=== PATIENT | male | born 1965 | race Caucasian/White ===

== ENCOUNTER 2019-11-07 10:31 | Emergency (ER) | payer MEDICAID ==
[~2019-11-07] VITALS: Ht 172.7 cm; Wt 82.6 kg
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
[2019-11-07 11:38] VITALS: BP 108/77
--- NOTE | 2019-11-07 11:38 | NUR ---
Patient discharged to home in stable condition. Written and verbal after care instructions given. Patient verbalizes understanding of instruction.
== END 2019-11-07 11:39 | disposition home or self-care (01) ==
LOC: ER 10:31
DX: S20.212A Contusion of left front wall of thorax, initial encounter (principal); F41.9 Anxiety disorder, unspecified; E03.9 Hypothyroidism, unspecified; Z98.890 Other specified postprocedural states; V19.88XA Pedal cyclist (driver) (passenger) injured in other specified transport accidents, initial encounter; Y93.89 Activity, other specified; Y92.89 Other specified places as the place of occurrence of the external cause; Y99.8 Other external cause status
CPT/HCPCS: 71250-TC

== ENCOUNTER 2019-12-22 17:38 | Emergency (ER) | payer MEDICAID ==
[~2019-12-22] VITALS: Ht 172.7 cm; Wt 81.2 kg
[2019-12-22] MEDS ORDERED: DULO30CA52 PO (18:03)
[2019-12-22] MEDS ORDERED: TRAZ-252 PO (18:03)
[2019-12-22] MEDS ORDERED: PANT40TA49 PO (18:03)
[2019-12-22] MEDS ORDERED: ALPR0.255 PO (18:03)
[2019-12-22] MEDS ORDERED: LEVO112T2 PO (18:03)
--- NOTE | 2019-12-22 18:12 | NUR ---
pt ambulatory to er bed 15 arrive w/ multiple complaints stating he is having BLE swelling, L rib area pain x "way too long." pt admits to smoking a lot of weed. denies any recent trauma. stable vitals. awaiting md jones.
--- NOTE | 2019-12-22 18:43 | NUR ---
sarayp pa at bedside for eval.
--- NOTE | 2019-12-22 19:10 | NUR ---
DOPPLER BEING PERFORMED BY BEDSIDE
[2019-12-22 19:40] LABS: BASOPHILS # (AUTO) 0.1 /CMM (0.0-0.2); BASOPHILS % (AUTO) 1.4 % (0.0-2.0); EOSINOPHILS % (AUTO) 5.6 % (0.0-6.0); HEMATOCRIT 44 % (39-51); HEMOGLOBIN 14.1 g/dL (13.5-17.5); LYMPHOCYTES # (AUTO) 1.7 /CMM (0.8-4.8); LYMPHOCYTES % (AUTO) 23.1 % (20.0-44.0); MEAN CORPUSCULAR HGB CONC 33 g/dl (31.0-36.0); MEAN CORPUSCULAR VOLUME 93 fL (80-96); MONOCYTES # (AUTO) 0.8 /CMM (0.1-1.30); MONOCYTES % (AUTO) 10.7 % (2.0-12.0); NEUTROPHILS # (AUTO) 4.3 /CMM (1.8-8.9); NEUTROPHILS % (AUTO) 59.2 % (43.0-81.0); PLATELET COUNT (AUTO) 218 /CMM (150-450); RED BLOOD CELL COUNT(AUTO) 4.68 MIL/uL (4.5-6.0); WHITE BLOOD COUNT (AUTO) 7.2 K/uL (4.3-11.0)
--- NOTE | 2019-12-22 19:40 | NUR ---
XRAY AT BEDSIDE.
[2019-12-22 19:48] LABS: CALCIUM, SERUM 8.6 mg/dL (8.5-10.1); CARBON DIOXIDE 33 mmol/L (21-32); CHLORIDE 102 mmol/L (98-107); CREATININE 0.8 mg/dL (0.6-1.3); GLUCOSE 81 mg/dL (74-106); POTASSIUM 3.7 mmol/L (3.5-5.1); SODIUM SERUM 138 mmol/L (136-145); UREA NITROGEN, BLOOD 13 mg/dL (7-18)
[2019-12-22 20:04] LABS: B-TYPE NATRIURETIC PEPTIDE 86 PG/ML (0-125)
--- NOTE | 2019-12-22 21:40 | NUR ---
Patient discharged to home in stable condition. Written and verbal after care instructions given. Patient verbalizes understanding of instruction.
--- NOTE | 2019-12-22 21:57 | NUR ---
IV removed. Catheter intact and site benign. Pressure and 4x4 applied to site. No bleeding noted.
[2019-12-23 04:47] VITALS: BP 132/77
== END 2019-12-22 21:50 | disposition home or self-care (01) ==
LOC: ER 17:44
DX: R60.0 Localized edema (principal); L03.116 Cellulitis of left lower limb; L03.115 Cellulitis of right lower limb; F41.9 Anxiety disorder, unspecified; E03.9 Hypothyroidism, unspecified; F12.90 Cannabis use, unspecified, uncomplicated; Z98.890 Other specified postprocedural states; Z79.899 Other long term (current) drug therapy
CPT/HCPCS: 36415; 71045-TC; 73564-TC; 73630-TC; 80048-TC; 83880; 84484-TC; 85025-TC; 93970-TC

== ENCOUNTER 2020-08-02 22:59 | Emergency (ER) | payer MEDICAID ==
[~2020-08-02] VITALS: Ht 175.3 cm; Wt 79.4 kg
[~2020-08-02 22:59] MED LIST: ALPR0.255 PO; DULO30CA52 PO; LEVO112T2 PO; PANT40TA49 PO; TRAZ-252 PO
[2020-08-02 23:00] VITALS: BP 138/78
[2020-08-02] MEDS ORDERED: TDAP [DIPH/PERTUSSIS/TET] 0.5 ML VIAL IM ONE (23:28)
[2020-08-02] MEDS: TDAP [DIPH/PERTUSSIS/TET] 0.5 ML VIAL IM ONE (23:29)
[2020-08-02] MEDS ORDERED: LIDOCAINE HCL/MPF 1% 30 ML VIAL IJ ONE (23:37)
== END 2020-08-02 23:54 | disposition home or self-care (01) ==
LOC: ER 23:02
DX: S61.412A Laceration without foreign body of left hand, initial encounter (principal); F41.9 Anxiety disorder, unspecified; E03.9 Hypothyroidism, unspecified; F17.200 Nicotine dependence, unspecified, uncomplicated; Z98.890 Other specified postprocedural states; Z79.899 Other long term (current) drug therapy; W26.0XXA Contact with knife, initial encounter; Y93.E8 Activity, other personal hygiene; Y92.89 Other specified places as the place of occurrence of the external cause; Y99.8 Other external cause status
CPT/HCPCS: 12001; 90471; 90715; 99283; A6403; J3490